=== PATIENT | male | born 1980 | race American Indian/Alaskan Native ===

== ENCOUNTER 2018-12-27 12:49 | Emergency (ER) | payer OTHER ==
--- NOTE | 2018-12-27 13:10 | Emergency Department Report ---
Blank Doc - Documentation Documentation: This is a 38-year-old male that presents with dizziness, chest pain and shortn ess of breathe. Patient stated chest pain radiates to left side rib and back area. This initial assessment/diagnostic orders/clinical plan/treatment(s) is/are subject to change based on patient's health status, clinical progression and re- assessment by fellow clinical providers in the ED. Further treatment and workup at subsequent clinical providers discretion. Patient/guardians urged not to elope from the ED as their condition may be serious if not clinically assessed and managed. Initial orders include: 1- Patient sent to [facility] for further evaluation and treatment 2- labs 3- EKG 4- CXR
[2018-12-27 13:27] LABS: Basophils # (Auto) 0.1 K/mm3 (0.0-0.1); Basophils % (Auto) 1.8 % (0.0-1.8); Eosinophils # (Auto) 0.1 K/mm3 (0.0-0.4); Eosinophils % (Auto) 2.3 % (0.0-4.3); Hematocrit 42.9 % (35.5-45.6); Hemoglobin 14.3 gm/dl (11.8-15.2); Lymphocytes # (Auto) 1.2 K/mm3 (1.2-5.4); Lymphocytes % (Auto) 30.6 % (13.4-35.0); Mean Corpuscular HGB Conc 33 % (32-34); Mean Corpuscular Volume 95 fl (84-94); Monocytes # (Auto) 0.5 K/mm3 (0.0-0.8); Monocytes % (Auto) 12.6 % (0.0-7.3); Platelet Count 340 K/mm3 (140-440); Red Cell Distribution Width 13.3 % (13.2-15.2)
[2018-12-27 13:38] LABS: INR 0.93 (0.87-1.13); Partial Thromboplastin Time 24.6 Sec. (24.2-36.6)
--- NOTE | 2018-12-27 13:42 | XRay Report ---
ROUTINE CHEST, TWO VIEWS: HISTORY: chest pain. The trachea, heart, mediastinal contour, lung marcelo and bony thorax are unremarkable. IMPRESSION: Unremarkable chest x-ray.
[2018-12-27 13:51] LABS: Alanine Aminotransferase 123 units/L (7-56); Albumin 4.9 g/dL (3.9-5); BUN/Creatinine Ratio 9; Blood Urea Nitrogen 6 mg/dL (9-20); Calcium 9.8 mg/dL (8.4-10.2); Hemolysis Index 8
--- NOTE | 2018-12-27 15:18 | Emergency Department Report ---
ED Dizziness HPI - General Chief Complaint: Chest Pain Stated Complaint: DIZZY/NUMB/LFT SHOULDER/PAIN Time Seen by Provider: 12/27/18 13:09 Source: patient Mode of arrival: Ambulatory Limitations: No Limitations - History of Present Illness Initial Comments: Mr. Deutsch is a very pleasant 32 yo male without significant past medical history who presents with dizziness and panic attack. For the past week since his cousin's , he has awakened in the middle of the night with dizziness. He has lightheadedness throughout the day which worsens with standing. He does drink one bottle of wine daily. He has had mild cough and generalized malaise. He had a similar episode one year ago. He is tearful. Denies SI/HI. Cousin 42 of massive stroke. He tried jogging around his neighborhood to improve the symptoms. MD Complaint: lightheadedness -: Gradual, week(s) (1) Timing: gradual onset Description: lightheadedness History of Same: Yes History of Trauma: No Severity: mild Worsens With: position Associated Symptoms: cough, shortness of breath, other (bilateral rib pain) - Related Data Allergies Allergy/AdvReac Type Severity Reaction Status Date / Time No Known Allergies Allergy Unverified 12/27/18 12:51 ED Review of Systems ROS: Stated complaint: DIZZY/NUMB/LFT SHOULDER/PAIN Other details as noted in HPI Comment: All other systems reviewed and negative Constitutional: malaise. denies: fever Respiratory: cough, shortness of breath Neurological: denies: headache ED Past Medical Hx - Past Medical History Previous Medical History?: No Additional medical history: panic attacks - Surgical History Past Surgical History?: No - Social History Smoking Status: Never Smoker Substance Use Type: Alcohol ED Physical Exam - General Limitations: No Limitations General appearance: alert, in no apparent distress - Head Head exam: Present: atraumatic, normocephalic - Eye Eye exam: Present: normal appearance - ENT ENT exam: Present: mucous membranes moist - Neck Neck exam: Present: normal inspection, full ROM. Absent: tenderness, meningismus - Respiratory Respiratory exam: Present: normal lung sounds bilaterally. Absent: respiratory distress, wheezes, rales, rhonchi - Cardiovascular Cardiovascular Exam: Present: regular rate, normal rhythm, normal heart sounds. Absent: systolic murmur, diastolic murmur, rubs, gallop - GI/Abdominal GI/Abdominal exam: Present: soft, normal bowel sounds. Absent: distended, tenderness, guarding, rebound - Rectal Rectal exam: Present: deferred - Extremities Exam Extremities exam: Present: normal inspection - Back Exam Back exam: Present: normal inspection - Neurological Exam Neurological exam: Present: alert, oriented X3 - Psychiatric Psychiatric exam: Present: anxious (tearful). Absent: homicidal ideation, suicidal ideation - Skin Skin exam: Present: warm, dry, intact, normal color. Absent: rash ED Course Vital Signs 12/27/18 12:52 Temperature 98.1 F Pulse Rate 72 Respiratory 20 Rate Blood Pressure 133/88 [Left] O2 Sat by Pulse 100 Oximetry ED Medical Decision Making - Lab Data Result diagrams: 12/27/18 13:16 12/27/18 13:16 Laboratory Results - last 24 hr 12/27/18 12/27/18 12/27/18 13:16 13:16 13:16 WBC 3.9 L RBC 4.50 Hgb 14.3 Hct 42.9 MCV 95 H MCH 32 MCHC 33 RDW 13.3 Plt Count 340 Lymph % (Auto) 30.6 [place] % (Auto) 12.6 H Eos % (Auto) 2.3 Baso % (Auto) 1.8 Lymph # 1.2 [place] # 0.5 Eos # 0.1 Baso # 0.1 Seg Neutrophils % 52.7 Seg Neutrophils # 2.1 PT 13.0 INR 0.93 APTT 24.6 D-Dimer 139.56 Sodium 141 Potassium 4.3 Chloride 100.4 Carbon Dioxide 24 Anion Gap 21 BUN 6 L Creatinine 0.7 L Estimated GFR > 60 BUN/Creatinine Ratio 9 Glucose 110 H Calcium 9.8 Total Bilirubin 0.40 AST 91 H ALT 123 H Alkaline Phosphatase 44 Troponin T < 0.010 Total Protein 8.0 Albumin 4.9 Albumin/Globulin Ratio 1.6 - EKG Data EKG shows normal: sinus rhythm, axis, intervals, QRS complexes, ST-T waves Rate: normal - Radiology Data Radiology results: report reviewed Chest X-ray PA/Lateral two-view radiographs, interpreted by me. My impression: No infiltrate, no pneumothorax, normal cardiac silhouette, normal mediastinum, no gross osseous abnormality, no acute process - Medical Decision Making Mrs. Deutsch presents with recurrent shortness of breath lightheadedness even in his sleep. I suspect grief reaction and anxiety. No evidence of pulmonary embolism with normal d-dimer. No evidence of pericarditis or ACS with normal EKG and normal troponin. Normal chest x-ray. Mr. Deutsch has had panic attacks on previous occasion as documented in EMR. Recommended cessation from daily alcohol use for 1 week. Recommended increase hydration. Discharged home with reassurance. Critical care attestation.: If time is entered above; I have spent that time in minutes in the direct care of this critically ill patient, excluding procedure time. ED Disposition Clinical Impression: Dehydration, Lightheadedness, Grief reaction Disposition: DC-01 TO HOME OR SELFCARE Is pt being admited?: No Does the pt Need Aspirin: No Condition: Stable Instructions: Dehydration (ED), Lightheadedness (ED)
[2018-12-27 15:49] VITALS: BP 142/83
== END 2018-12-27 15:49 | disposition home or self-care (01) ==
LOC: ED 12:49
DX: E86.0 Dehydration (principal); R42 Dizziness and giddiness; F43.21 Adjustment disorder with depressed mood; R05 Cough
CPT/HCPCS: 36415; 71046; 80053; 84484; 85025; 85379; 85610; 85730; 93005; 93010